=== PATIENT | male | born 1995 | race Caucasian/White ===

== ENCOUNTER 2016-10-04 09:09 | Inpatient (IN) | payer OTHER, SELFPAY ==
[~2016-10-04] VITALS: Ht 177.8 cm; Wt 70.0 kg
[2016-10-04 09:59] LABS: HEMATOCRIT 49.2 % (39.2-51.8); HEMOGLOBIN 16.4 g/dL (13.7-18.0); WHITE BLOOD COUNT 17.9 x10^3/uL (3.4-10)
[2016-10-04] MEDS ORDERED: SODIUM CHLORIDE 0.9% 1,000ML IVBOLUS ONE ×2 (10:00→10:30)
[2016-10-04] MEDS ORDERED: ONDANSETRON 2MG/ML, 2ML IVPush ONE (10:00)
[2016-10-04] MEDS ORDERED: SODIUM CHLORIDE FLUSH 10ML SYR IVF ONE (10:00)
[2016-10-04] MEDS ORDERED: FAMOTIDINE 20 MG/2 ML ONE (10:12)
[2016-10-04] MEDS ORDERED: ONDANSETRON 2MG/ML, 2ML ONE (10:12)
[2016-10-04 10:29] LABS: BLOOD UREA NITROGEN 15 mg/dL (7-18)
[2016-10-04] MEDS ORDERED: FAMOTIDINE 20 MG/2 ML IVPush ONE (10:30)
[2016-10-04 11:00] LABS: ASPARTATE AMINO TRANSFERASE 27 U/L (15-37)
[2016-10-04] MEDS ORDERED: NS + 40MEQ KCL 1,000 ML IV SCH (11:00)
[2016-10-04 11:53] LABS: DAU SCREEN DISCLAIMER
[2016-10-04] MEDS ORDERED: PROMETHAZINE 25 MG/ML, 1ML IM PRN (12:30)
[2016-10-04] MEDS ORDERED: ONDANSETRON 2MG/ML, 2ML IVPush PRN (12:30)
[2016-10-04] MEDS ORDERED: OMNIPAQUE 350 MG/ML, 100ML BOTTLE ONE (12:40)
[2016-10-04] MEDS ORDERED: POTASSIUM CHLORIDE 20 MEQ TAB.ER.PRT ONE (12:44)
[2016-10-04] MEDS: POTASSIUM CHLORIDE 20 MEQ TAB.ER.PRT PO SCH ×2 (12:51→21:07)
[2016-10-04] MEDS ORDERED: NS + 40MEQ KCL 1,000 ML IV ONE (12:56)
[2016-10-04 15:10] VITALS: BP 126/65
[2016-10-04] MEDS: LACTATED RINGERS 1,000 ML IV SCH ×2 (15:41→22:11)
[2016-10-04 18:13] LABS: ASPARTATE AMINO TRANSFERASE 26 U/L (15-37); BLOOD UREA NITROGEN 11 mg/dL (7-18)
[2016-10-04 20:00] VITALS: BP 114/62
[2016-10-05 02:00] VITALS: BP 115/69
[2016-10-05] MEDS: LACTATED RINGERS 1,000 ML IV SCH (04:49)
[2016-10-05 05:44] LABS: HEMATOCRIT 41.9 % (39.2-51.8); HEMOGLOBIN 14.3 g/dL (13.7-18.0); WHITE BLOOD COUNT 9.5 x10^3/uL (3.4-10)
[2016-10-05 06:04] LABS: ASPARTATE AMINO TRANSFERASE 22 U/L (15-37); BLOOD UREA NITROGEN 5 mg/dL (7-18)
[2016-10-05 06:41] VITALS: BP 105/65
== END 2016-10-05 10:15 | disposition home or self-care (01) | DRG 872 ==
LOC: ED 10:37 → SUATTDRO 12:13 → EDIP 12:24 → 4EST 14:35 → DCLOUNGE 10-05 09:50
PROVIDERS: ADMIT Hospitalist; ATTEND Hospitalist
DX: A41.9 Sepsis, unspecified organism (principal); T68.XXXA Hypothermia, initial encounter; E86.0 Dehydration; E87.6 Hypokalemia; K52.9 Noninfective gastroenteritis and colitis, unspecified; R65.20 Severe sepsis without septic shock; X58.XXXA Exposure to other specified factors, initial encounter
CPT/HCPCS: 36415; 71010; 74177; 80053; 80307; 81003; 83605; 83735; 84100; 84145; 84436; 84439; 84443; 85025; 87040; 93005; 96361; 96374; 96375; J2405; Q9967; J3480; J7030; J7120; S0028

== ENCOUNTER 2017-02-20 23:11 | Emergency (ER) | payer SELFPAY ==
[~2017-02-20] VITALS: Ht 177.8 cm; Wt 73.9 kg
[2017-02-20] MEDS ORDERED: LIDOCAINE 1%, 10ML ONE (23:25)
[2017-02-20] MEDS ORDERED: LIDOCAINE 1%, 20ML INFIL ONE (23:30)
[2017-02-21] MEDS ORDERED: DIPH,PERTUSS(ACELL),TET VAC/PF 0.5 ML IM-VACC ONE ×2 (00:30)
[2017-02-21 00:49] VITALS: BP 114/85
== END 2017-02-21 00:51 | disposition home or self-care (01) ==
LOC: ED 23:59
DX: S61.012A Laceration without foreign body of left thumb without damage to nail, initial encounter (principal); W29.8XXA Contact with other powered hand tools and household machinery, initial encounter; Y93.89 Activity, other specified; Y92.89 Other specified places as the place of occurrence of the external cause; Y99.8 Other external cause status
CPT/HCPCS: 12001; 90471; 90715

== ENCOUNTER 2018-09-05 14:18 | Emergency (ER) | payer OTHER ==
[~2018-09-05] VITALS: Ht 177.8 cm; Wt 75.8 kg
[2018-09-05 16:45] VITALS: BP 116/51
== END 2018-09-05 18:55 | disposition home or self-care (01) ==
LOC: ED 16:15
DX: R10.84 Generalized abdominal pain (principal); R11.2 Nausea with vomiting, unspecified; E86.0 Dehydration; R59.0 Localized enlarged lymph nodes
CPT/HCPCS: 36415; 74177; 76700; 80053; 83690; 85025; 96361; 96372; 96374; 96375; 99284; J0500; J2270; J2405; J2765; J7030; Q9967